=== PATIENT | female | born 1945 | race Caucasian/White ===

== ENCOUNTER 2016-04-29 14:49 | Inpatient (IN) | payer OTHER, MEDICARE ==
[2016-04-29] VITALS (7 sets, daily range): BP systolic 123–149; BP diastolic 51–89
[~2016-04-29] VITALS: Ht 165.1 cm; Wt 117.0 kg
[2016-04-29 15:35] LABS: BASOPHIL % 0.3 % (0-2); PLATELET COUNT 158 x10^3mcL (130-400)
[2016-04-29 15:37] LABS: RED CELL DISTRIBUTION WIDTH 16.3 % (11.5-14.5)
[2016-04-29 15:45] LABS: CALCIUM 8.4 mg/dL (8.5-10.1); CARBON DIOXIDE 28.7 mmol/L (21-32); CREATININE SERUM 3.3 mg/dL (0.6-1.0); POTASSIUM SERUM 3.4 mmol/L (3.5-5.1)
[2016-04-29 15:57] LABS: BILIRUBIN TOTAL 0.6 mg/dL (0.20-1.00)
[2016-04-29 15:58] LABS: TOTAL PROTEIN, SERUM 6.1 g/dL (6.4-8.2)
[2016-04-29 16:37] LABS: microscopic required? YES; urine erythrocyte 1+ (NEGATIVE)
[2016-04-29 16:49] LABS: AMPHETAMINE QUAL UR NONE DETECTED (NEG <=1000)
[2016-04-29 17:10] LABS: MAGNESIUM 2.2 mg/dL (1.8-2.4); PHOSPHOROUS 4.5 mg/dL (2.5-4.9)
[2016-04-29] MEDS ORDERED: LIPI20 PO (19:04)
[2016-04-29] MEDS ORDERED: GLYBURIDE5 MG PO (19:07)
[2016-04-29] MEDS ORDERED: COR3 PO (19:07)
[2016-04-29] MEDS ORDERED: HYDRALAZINE HCL25 MG PO (19:10)
[2016-04-29] MEDS ORDERED: ISOSORBIDE DINIT5 M2 PO (19:12)
[2016-04-29] MEDS ORDERED: NEPHRO-VITE VITA1 EA PO (19:12)
[2016-04-29] MEDS ORDERED: PLA75 PO (19:12)
[2016-04-29] MEDS ORDERED: PHOSLO667 MG PO (19:12)
[2016-04-29] MEDS ORDERED: SENSIPAR30 M1 PO (19:13)
[2016-04-29 22:17] LABS: PHOSPHOROUS 5.1 mg/dL (2.5-4.9)
[2016-04-29 22:41] LABS: MAGNESIUM 2.1 mg/dL (1.8-2.4)
[2016-04-30] VITALS (13 sets, daily range): BP systolic 106–179; BP diastolic 46–84
[2016-04-30 03:25] LABS: BASOPHIL % 0.2 % (0-2)
[2016-04-30 03:43] LABS: PLATELET COUNT 105 x10^3mcL (130-400); RED CELL DISTRIBUTION WIDTH 15.8 % (11.5-14.5)
[2016-04-30 03:55] LABS: MAGNESIUM 2.1 mg/dL (1.8-2.4); PHOSPHOROUS 5.6 mg/dL (2.5-4.9)
[2016-04-30 04:01] LABS: BILIRUBIN TOTAL 0.59 mg/dL (0.20-1.00); CALCIUM 8.8 mg/dL (8.5-10.1); CARBON DIOXIDE 31.6 mmol/L (21-32); CREATININE SERUM 3.8 mg/dL (0.6-1.0); POTASSIUM SERUM 3.4 mmol/L (3.5-5.1)
[2016-04-30 10:02] LABS: BILIRUBIN TOTAL 0.55 mg/dL (0.20-1.00); CALCIUM 8.8 mg/dL (8.5-10.1); CARBON DIOXIDE 29.2 mmol/L (21-32); POTASSIUM SERUM 3.5 mmol/L (3.5-5.1); TOTAL PROTEIN, SERUM 6.4 g/dL (6.4-8.2)
[2016-04-30 10:21] LABS: CREATININE SERUM 4.1 mg/dL (0.6-1.0)
[2016-04-30 10:38] LABS: MAGNESIUM 2.1 mg/dL (1.8-2.4)
[2016-04-30 15:41] LABS: MAGNESIUM 2.2 mg/dL (1.8-2.4); PHOSPHOROUS 6.8 mg/dL (2.5-4.9)
[2016-04-30 22:02] LABS: PHOSPHOROUS 7.2 mg/dL (2.5-4.9)
[2016-05-01] VITALS (18 sets, daily range): BP systolic 89–148; BP diastolic 48–96
[2016-05-01 03:45] LABS: MAGNESIUM 2.1 mg/dL (1.8-2.4); PHOSPHOROUS 8.7 mg/dL (2.5-4.9)
[2016-05-01 03:48] LABS: BILIRUBIN TOTAL 0.41 mg/dL (0.20-1.00); CALCIUM 8.4 mg/dL (8.5-10.1); CARBON DIOXIDE 26.2 mmol/L (21-32); POTASSIUM SERUM 3.7 mmol/L (3.5-5.1)
[2016-05-01 04:25] LABS: ALBUMIN 2.7 g/dL (3.4-5.0); TOTAL PROTEIN, SERUM 5.9 g/dL (6.4-8.2)
[2016-05-01 04:26] LABS: CREATININE SERUM 4.6 mg/dL (0.6-1.0)
[2016-05-01 04:58] LABS: BASOPHIL % 0.2 % (0-2)
[2016-05-01 05:05] LABS: PLATELET COUNT 127 x10^3mcL (130-400); RED CELL DISTRIBUTION WIDTH 15.8 % (11.5-14.5)
[2016-05-01 05:16] LABS: CALCIUM 8.4 mg/dL (8.5-10.1); CARBON DIOXIDE 27.5 mmol/L (21-32); MAGNESIUM 2.1 mg/dL (1.8-2.4); PHOSPHOROUS 8.7 mg/dL (2.5-4.9); POTASSIUM SERUM 4.3 mmol/L (3.5-5.1)
[2016-05-01 05:20] LABS: CREATININE SERUM 4.7 mg/dL (0.6-1.0)
[2016-05-02] VITALS (17 sets, daily range): BP systolic 94–118; BP diastolic 35–66
[2016-05-02 05:42] LABS: BASOPHIL % 0.1 % (0-2)
[2016-05-02 05:47] LABS: PLATELET COUNT 124 x10^3mcL (130-400)
[2016-05-02 05:58] LABS: BILIRUBIN TOTAL 0.36 mg/dL (0.20-1.00); CALCIUM 8.1 mg/dL (8.5-10.1); CARBON DIOXIDE 26.6 mmol/L (21-32); MAGNESIUM 2.1 mg/dL (1.8-2.4); POTASSIUM SERUM 4.4 mmol/L (3.5-5.1)
[2016-05-02 05:59] LABS: ALBUMIN 2.4 g/dL (3.4-5.0); TOTAL PROTEIN, SERUM 5.4 g/dL (6.4-8.2)
[2016-05-02 07:58] LABS: CALCIUM 8.4 mg/dL (8.5-10.1); CARBON DIOXIDE 25.1 mmol/L (21-32); POTASSIUM SERUM 4.4 mmol/L (3.5-5.1)
[2016-05-02 08:01] LABS: CREATININE SERUM 6.2 mg/dL (0.6-1.0)
[2016-05-03] VITALS (15 sets, daily range): BP systolic 97–123; BP diastolic 43–79
[2016-05-03 05:55] LABS: BASOPHIL % 0.1 % (0-2)
[2016-05-03 05:58] LABS: PLATELET COUNT 114 x10^3mcL (130-400); RED CELL DISTRIBUTION WIDTH 16.2 % (11.5-14.5)
[2016-05-03 06:01] LABS: CALCIUM 8.7 mg/dL (8.5-10.1); CARBON DIOXIDE 24.7 mmol/L (21-32); MAGNESIUM 2.1 mg/dL (1.8-2.4); POTASSIUM SERUM 4.6 mmol/L (3.5-5.1)
[2016-05-03 06:04] LABS: CREATININE SERUM 7.6 mg/dL (0.6-1.0); PHOSPHOROUS 10.1 mg/dL (2.5-4.9)
[2016-05-04] VITALS (19 sets, daily range): BP systolic 85–152; BP diastolic 38–71; Ht 165.1 cm; Wt 117.0 kg
[2016-05-04 05:36] LABS: BASOPHIL % 0.3 % (0-2)
[2016-05-04 05:37] LABS: CARBON DIOXIDE 25.3 mmol/L (21-32); MAGNESIUM 2.4 mg/dL (1.8-2.4); POTASSIUM SERUM 5.1 mmol/L (3.5-5.1)
[2016-05-04 05:40] LABS: CREATININE SERUM 8.7 mg/dL (0.6-1.0)
[2016-05-04 05:41] LABS: PHOSPHOROUS 10.8 mg/dL (2.5-4.9)
[2016-05-04 05:43] LABS: PLATELET COUNT 115 x10^3mcL (130-400); RED CELL DISTRIBUTION WIDTH 15.8 % (11.5-14.5)
[2016-05-04] MEDS ORDERED: IPRATROPIUM BROM3 M2 HHN ×2 (18:21)
[2016-05-04] MEDS ORDERED: FERL PO (18:21)
[2016-05-04] MEDS ORDERED: LIPI20 PO (18:24)
[2016-05-04] MEDS ORDERED: NIT0.4 SL (18:25)
[2016-05-04] MEDS ORDERED: TYL325 NG (18:27)
[2016-05-04] MEDS ORDERED: ATI2I IV (18:27)
[2016-05-04] MEDS ORDERED: DEXPF IV (18:28)
[2016-05-04] MEDS ORDERED: PHOS PO (18:28)
[2016-05-04] MEDS ORDERED: BG MC (18:28)
[2016-05-04] MEDS ORDERED: PULMICORT0.25 MG/2 IH (18:29)
[2016-05-04] MEDS ORDERED: HUMULIN R100 U/1 M1 SC (18:29)
[2016-05-04] MEDS ORDERED: NEP NG (18:29)
[2016-05-04] MEDS ORDERED: LAC PO (18:30)
[2016-05-04] MEDS ORDERED: LEVEMIR100 U/M1 SQ (18:30)
[2016-05-04] MEDS ORDERED: HURS MM (18:31)
[2016-05-04] MEDS ORDERED: COL100 PO (18:31)
[2016-05-04] MEDS ORDERED: PROT40I IV (18:31)
[2016-05-04] MEDS ORDERED: ZOFI IV (18:32)
== END 2016-05-04 23:20 | disposition short-term general hospital (02) | DRG 207 ==
LOC: ED 14:49 → IC 16:12
PROVIDERS: Emergency Medicine; Family Medicine; Internal Medicine; ADMIT Family Medicine
PROC: 5A1955Z Respiratory Ventilation, Greater than 96 Consecutive Hours (ICD-10-PCS; principal; 2016-04-29)
PROC: 05HM33Z Insertion of Infusion Device into Right Internal Jugular Vein, Percutaneous Approach (ICD-10-PCS; 2016-04-29)
PROC: B543ZZA Ultrasonography of Right Jugular Veins, Guidance (ICD-10-PCS; 2016-04-29)
PROC: 4A133BC Monitoring of Arterial Pressure, Coronary, Percutaneous Approach (ICD-10-PCS; 2016-04-29)
PROC: 6A4Z0ZZ Hypothermia, Single (ICD-10-PCS; 2016-04-29)
PROC: 4A023N7 Measurement of Cardiac Sampling and Pressure, Left Heart, Percutaneous Approach (ICD-10-PCS; 2016-05-04)
PROC: B2151ZZ Fluoroscopy of Left Heart using Low Osmolar Contrast (ICD-10-PCS; 2016-05-04)
PROC: B2111ZZ Fluoroscopy of Multiple Coronary Arteries using Low Osmolar Contrast (ICD-10-PCS; 2016-05-04)
DX: J96.02 Acute respiratory failure with hypercapnia (principal); N18.6 End stage renal disease; N17.0 Acute kidney failure with tubular necrosis; I50.43 Acute on chronic combined systolic (congestive) and diastolic (congestive) heart failure; E43 Unspecified severe protein-calorie malnutrition; N39.0 Urinary tract infection, site not specified; I42.0 Dilated cardiomyopathy; I13.2 Hypertensive heart and chronic kidney disease with heart failure and with stage 5 chronic kidney disease, or end stage renal disease; D68.69 Other thrombophilia; Z68.41 Body mass index [BMI] 40.0-44.9, adult; I25.119 Atherosclerotic heart disease of native coronary artery with unspecified angina pectoris; E11.65 Type 2 diabetes mellitus with hyperglycemia; E11.51 Type 2 diabetes mellitus with diabetic peripheral angiopathy without gangrene; E87.6 Hypokalemia; D63.1 Anemia in chronic kidney disease; I48.2 Chronic atrial fibrillation; I44.1 Atrioventricular block, second degree; I27.2 Other secondary pulmonary hypertension; E66.01 Morbid (severe) obesity due to excess calories; Z99.2 Dependence on renal dialysis; Z85.43 Personal history of malignant neoplasm of ovary; Z79.84 Long term (current) use of oral hypoglycemic drugs
CPT/HCPCS: CLHCL; 36556; 36600; 80307; 82962; 83880; A4628; C1769; C1887; C1894; C9113; J1642; J1644; J1815; J1940; J1956; J2001; J2060; J2250; J2270; J2370; J2405; J2704; J3010; J3490; J7030; J7040; J7050; J7620; J7633; Q0092; Q9967